=== PATIENT | male | born 1960 | race Two or more races ===

== ENCOUNTER 2022-03-23 00:24 | Emergency (ER) | payer SELFPAY ==
[~2022-03-23] VITALS: Ht 180.3 cm; Wt 111.0 kg
[2022-03-23 00:31] VITALS: BP 158/87
== END 2022-03-23 05:05 | disposition home or self-care (01) ==
LOC: EMS 00:25
DX: S02.31XA Fracture of orbital floor, right side, initial encounter for closed fracture (principal); F15.90 Other stimulant use, unspecified, uncomplicated; F17.210 Nicotine dependence, cigarettes, uncomplicated; X58.XXXA Exposure to other specified factors, initial encounter; Y93.89 Activity, other specified; Y92.89 Other specified places as the place of occurrence of the external cause; Y99.8 Other external cause status
CPT/HCPCS: 70450; 70486; 99284